=== PATIENT | female | born 1965 | race African-American/Black ===

== ENCOUNTER → 2016-04-17 08:40 | Outpatient (CLI) | payer BC ==
--- NOTE | 2016-04-26 07:17 | EMG ---
PATIENT:ELIZABETH RODRIGUEZ DATE OF SERVICE: 04/17/16 MEDICAL RECORD: [id number] DATE OF : 65 LOCATION: [facility] ADMISSION DATE: REFERRING PHYSICIAN: SHAKIR COX MD INTERPRETING PHYSICIAN: EMEKA RAMEY MD DATE OF SERVICE: 04/17/2016 Electromyographic Report REFERRED BY: Dr. Shakir Cox as an outpatient. ELECTROMYOGRAPHIC DATA: Electromyographic examination is limited to both upper extremities. In the right upper extremity, right median motor stimulation elicits a compound motor action potential with a distal latency of 4.9 milliseconds, peak amplitude of 6 millivolts, and calculated conduction velocity of 52 meters per second. Right ulnar motor stimulation elicits a compound motor action potential with a distal latency of 2.7 milliseconds, peak amplitude of 10 millivolts and calculated conduction velocity of 58 meters per second. Right ulnar motor stimulation across the elbow fails to elicit evidence of conduction block at this level. Antidromic right median sensory stimulation elicits a response with a distal latency of 5.4 milliseconds, amplitude of 5 microvolts and calculated conduction velocity of 58 meters per second. Antidromic right ulnar sensory stimulation elicits a response with a distal latency of 3.2 milliseconds, amplitude of 20 microvolts and calculated conduction velocity of 54 meters per second. The right median F wave has a latency of 33 milliseconds. In the left upper extremity, left median motor stimulation elicits a compound motor action potential with a distal latency of 3.7 milliseconds, peak amplitude of 6 millivolts, and calculated conduction velocity of 54 meters per second. Left ulnar motor stimulation elicits a compound motor action potential with a distal latency of 2.4 milliseconds, peak amplitude of 5 millivolts, and calculated conduction velocity of 56 meters per second. Left ulnar motor stimulation across the elbow fails to elicit evidence of conduction block at this level. Antidromic left median sensory stimulation elicits a response with a distal latency of 4.3 milliseconds, amplitude of 13 microvolts and calculated conduction velocity of 58 meters per second. Antidromic left ulnar sensory stimulation elicits a response with a distal latency of 3.2 milliseconds, amplitude of 24 microvolts and calculated conduction velocity of 56 meters per second. The left median F wave has a latency of 29 milliseconds. Needle electrode examination is limited to the right upper extremity. Muscles interrogated include the abductor pollicis brevis, first dorsal interosseous, abductor digiti minimi, pronator teres, biceps brachii, triceps and deltoid. There is no abnormality of insertional activity and no abnormal spontaneous activity is seen in all muscles interrogated. Motor unit potential morphology and the pattern of motor unit potential firing and recruitment is normal in all muscles sampled. INTERPRETATION: Electromyographic examination of both upper extremities with needle electrode examination is limited to the right upper extremity is indicative of median neuropathy, at or distal to the wrists bilaterally, right greater than left, moderate in degree electrically on the right, consistent with ELECTROMYGRAM/NERVE CONDUCTION [id number] ELIZABETH RODRIGUEZ the diagnosis of bilateral carpal tunnel syndrome. There is no electrical evidence of a superimposed cervical radiculopathy or other lesion of the lower motor neuron in the upper extremities at this time. There is no evidence of active denervation. TRANSINT:[id number] Voice Confirmation ID: [id number] DOCUMENT ID: [id number] EMEKA RAMEY MD at 0717 CC: [id number] DICTATION DATE: 04/18/16 0737 RISK AND INSURANCE MANAGER: 04/18/16 0803 DEP CLI 04/17/16 [id number] [place] [id number]
== END | disposition home or self-care (01) ==
LOC: D.CN 08:30
DX: R20.9 Unspecified disturbances of skin sensation (principal)